=== PATIENT | female | born 1985 | race Caucasian/White ===

== ENCOUNTER 2019-11-02 04:45 | Emergency (ER) | payer MEDICAID ==
[~2019-11-02] VITALS: Ht 167.6 cm; Wt 86.2 kg
[2019-11-02 07:09] LABS: Urine Amorphous Crystal MOD /hpf (None Seen); Urine Bacteria FEW /hpf (None Seen); Urine Blood Negative /uL (Negative); Urine Hyaline Cast MANY /lpf (0 - 2); Urine Mucus FEW (None Seen); Urine Pregnacy Test Negative (Negative); Urine Specific Gravity 1.016 (1.001-1.035); Urine WBC 5 /hpf (0 - 5)
[2019-11-02 07:21] LABS: Basophils # (auto) 0.1 10 ^3/uL (0-0.2); Eosinophils # (auto) 0 10 ^3/uL (0-0.8); Eosinophils % (auto) 0.5 % (0.0-7.0); Hematocrit 46.1 % (36.0-46.0); Lymphocytes # (auto) 3.1 10 ^3/uL (0.4-5.4); Lymphocytes % (auto) 32.2 % (10.0-50.0); Mean Corpuscular Hemoglobin 33.3 pg (28.0-32.0); Mean Corpuscular Hgb Conc. 34.6 g/dL (32.0-36.0); Mean Corpuscular Volume 96.1 fL (80.0-100.0); Monocytes # (auto) 0.6 10 ^3/uL (0-1.3); Monocytes % (auto) 5.8 % (0.0-12.0); Neutrophils # (auto) 5.8 10 ^3/uL (1.6-8.6); Neutrophils % (auto) 60.5 % (37.0-80.0); Nucleated Red Blood Cells % 0.1 %; Platelet Count (auto) 327 10^3/uL (140-450); Red Cell Distribution Width 13.9 % (11.8-14.3); White Blood Cell 9.6 10^3/uL (4.4-10.8)
[2019-11-02 07:32] LABS: Amphetamine Screen, Urine NEGATIVE (NEGATIVE); Barbiturate Scree,Urine NEGATIVE (NEGATIVE); Benzodiazephine Screen, Urine NEGATIVE (NEGATIVE); Cannabinoid Screen, Urine NEGATIVE (NEGATIVE); Cocaine Screen, Urine NEGATIVE (NEGATIVE); Phencyclidine Screen, Urine NEGATIVE (NEGATIVE)
[2019-11-02 07:36] LABS: BUN/Creatinine Ratio 15.3; Calcium 8.9 mg/dL (8.5-10.1); Magnesium 2.1 mg/dL (1.6-2.6); Potassium 3.8 mmol/L (3.5-5.1)
[2019-11-02 07:37] LABS: Salicylate 3.2 mg/dL (2.8-20.0)
[2019-11-02 07:41] LABS: Opiate Scree,Urine NEGATIVE (NEGATIVE)
[2019-11-02] MEDS ORDERED: SODIUM CHLORIDE 0.9% 1,000 ML IVB ONE (07:49)
[2019-11-02 07:51] LABS: Acetaminophen < 2.0 ug/mL (10-30)
[2019-11-02 07:55] LABS: Bilirubin, Total 0.3 mg/dL (0.2-1.0); Total Protein 8.2 g/dL (6.4-8.2)
[2019-11-02] MEDS ORDERED: LORazepam 0.5 MG TAB PO ONE (21:00)
--- NOTE | 2019-11-02 23:51 | NUR ---
5150 Pt interviewed, 5150 completed and placed in chart.
[2019-11-03] MEDS ORDERED: LORazepam 0.5 MG TAB PO ONE (09:45)
[2019-11-03] MEDS ORDERED: ONDANSETRON ODT 4 MG TAB PO ONE (16:45)
[2019-11-03] MEDS: LORazepam 0.5 MG TAB PO PRN (19:50)
[2019-11-04] MEDS: LORazepam 0.5 MG TAB PO PRN ×2 (07:58→21:58)
[2019-11-04] MEDS ORDERED: HYDROcodone-ACET 5/325MG TAB PO ONE (20:45)
[2019-11-05] MEDS ORDERED: ACETAMINOPHEN 325 MG TAB PO ONE (08:15)
[2019-11-05] MEDS ORDERED: IBUPROFEN 600 MG TAB PO ONE (08:15)
[2019-11-05] MEDS ORDERED: LORazepam 0.5 MG TAB PO PRN (12:15)
[2019-11-05] MEDS: LORazepam 0.5 MG TAB PO PRN (12:20)
[2019-11-05 19:30] VITALS: BP 134/98
== END 2019-11-06 00:16 | disposition home or self-care (01) ==
LOC: ER 04:45 → EDBD 04:45 → ER 11-06 00:16
DX: F10.129 Alcohol abuse with intoxication, unspecified (principal); F32.9 Major depressive disorder, single episode, unspecified; R45.851 Suicidal ideations; Y90.8 Blood alcohol level of 240 mg/100 ml or more
CPT/HCPCS: 36415; 80053; 80307; 80320; 80329; 81001; 81025; 83735; 85025

== ENCOUNTER 2023-04-30 20:07 | Emergency (ER) | payer MEDICAID ==
[~2023-04-30] VITALS: Ht 180.3 cm; Wt 102.0 kg
[2023-04-30 20:51] VITALS: BP 139/73; PULSE 80; RESP 16; O2SAT 97
[2023-04-30 21:18] LABS: Urine Bacteria NONE SEEN /hpf (None Seen); Urine Blood 1+ /uL (Negative); Urine Clarity Clear (Clear); Urine Color Colorless (Yellow); Urine Protein, UAD Negative (Negative); Urine Specific Gravity 1.005 (1.001-1.035); Urine Urobilinogen Normal (Negative); Urine WBC <1 /hpf (0 - 5); Urine pH 5.5 (5.0-8.0)
[2023-04-30 22:09] LABS: Basophils # (auto) 0.1 10 ^3/uL (0-0.2); Basophils % (auto) 0.5 % (0.0-2.0); Eosinophils # (auto) 0.2 10 ^3/uL (0-0.8); Eosinophils % (auto) 2.2 % (0.0-7.0); Hematocrit 38.4 % (36.0-46.0); Hemoglobin 13.2 g/dL (12.2-16.2); Lymphocytes # (auto) 3.6 10 ^3/uL (0.4-5.4); Lymphocytes % (auto) 34.9 % (10.0-50.0); Mean Corpuscular Hemoglobin 31.6 pg (28.0-32.0); Mean Corpuscular Hgb Conc. 34.3 g/dL (32.0-36.0); Mean Corpuscular Volume 92.1 fL (80.0-100.0); Monocytes # (auto) 0.7 10 ^3/uL (0-1.3); Monocytes % (auto) 6.3 % (0.0-12.0); Neutrophils # (auto) 5.8 10 ^3/uL (1.6-8.6); Neutrophils % (auto) 56.1 % (37.0-80.0); Red Blood Cells 4.16 10^6/uL (4.0-5.20); White Blood Cell 10.3 10^3/uL (4.4-10.8)
[2023-04-30 22:35] LABS: INR 0.97 (0.9-1.15); Partial Thromboplastin Time 26.6 SEC (24.5-34.5); Prothrombin Time 10.2 sec (9.3-11.8)
== END 2023-04-30 23:40 | disposition home or self-care (01) ==
LOC: ER 20:07
DX: T83.89XA Other specified complication of genitourinary prosthetic devices, implants and grafts, initial encounter (principal); R10.2 Pelvic and perineal pain
CPT/HCPCS: 36415; 74176; 76856; 81001; 84702; 85025; 85610; 85730

== ENCOUNTER 2025-01-14 03:41 | Emergency (ER) | payer MEDICAID ==
[~2025-01-14] VITALS: Ht 177.8 cm; Wt 79.1 kg
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
[2025-01-14 04:34] LABS: Urine Bacteria FEW /hpf (None Seen); Urine Blood Negative /uL (Negative); Urine Clarity Turbid (Clear); Urine Color Yellow (Yellow); Urine Mucus FEW (None Seen); Urine Protein, UAD TRACE (Negative); Urine Specific Gravity 1.024 (1.001-1.035); Urine Squamous Epithelial Cell FEW /hpf (<5); Urine Urobilinogen Normal (Negative); Urine WBC 3 /HPF (0-5); Urine pH 5.5 (5.0-9.0)
[2025-01-14 06:24] VITALS: BP 129/75; PULSE 88; RESP 19; TEMP 97.8; O2SAT 98
== END 2025-01-14 10:46 | disposition left against medical advice (07) ==
LOC: ER 03:43
DX: F41.9 Anxiety disorder, unspecified (principal)
CPT/HCPCS: 81001; 81025